=== PATIENT | female | born 1970 | race Caucasian/White ===

== ENCOUNTER 2024-04-16 13:07 | Emergency (ER) | payer OTHER, SELFPAY ==
[2024-04-16 13:11] VITALS: BP 138/75
--- NOTE | 2024-04-16 13:35 | ED.GENMED ---
History of Present Illness
General
Chief Complaint: Musculo-Skeletal Complaint
Source: patient
Exam Limitations: none
Time Seen by Provider: 04/16/24 13:34
Nursing documentation reviewed up to this point in time: agreed with
Travel History
Have you had any contact with someone who has COVID-19?: No
Do you have any symptoms of coronavirus? Fever > 100 degrees, chills, cough, shortness of breath, sore throat, loss of taste or smell, muscle aches, or headache?: No
History of Present Illness
History of Present Illness:
Patient is a 53-year-old female with history asthma, GERD presenting for evaluation of left lower chest discomfort. Patient reports symptoms have been ongoing over the course of the past 3 weeks. Symptoms are exacerbated greatly with coughing and
movement, specifically twisting motion. Patient does not endorse some worsening with deep inspiration. Patient denies any pain at rest or when lying down. Patient denies any associated fever, or shortness of breath. Patient denies any recent
dizziness, lightheadedness, or fainting.
Of note�patient says she was recently sick with what she believes to be a viral URI about a month ago. This was associated with significant coughing. Patient denies any sputum production line with cough. She does have a chronic cough at
baseline.
Patient denies any recent travel or recent surgeries. No history of blood clots or clotting disorders. Patient is a current smoker.
Past History
Past History
ED Past Medical History: Asthma and GERD
ED Past Surgical History: Appendectomy
Social History
Tobacco: Smoker
Review of Systems
Review of Systems
Allergies reviewed?: Yes
All Other Systems: ROS reviewed and negative except as documented in HPI and ROS
Phy Exam
Physical Exam
Physical Exam:
Vitals: Patient's vital signs are stable. Afebrile
General: Patient is well appearing, no acute distress. Nontoxic-appearing
Skin: Warm and dry, no rashes or lesions. No bruising
Head: Normocephalic, atraumatic
Eyes: Sclera nonicteric. EOMs intact. No nystagmus.
Throat: Protecting airway
Neck: Normal ROM, no cervical spine tenderness, no meningismus. Trachea midline
Cardiac: Regular rate and rhythm, no murmurs. Point tenderness noted to left lower lateral rib cage without any crepitus or obvious bony deformity.
Pulm: Lungs clear bilaterally. Normal respiratory effort, no wheezes, rales, rhonchi heard on exam. No evidence of respiratory distress. No accessory muscle use.
Abdomen: No abdominal tenderness.
Extremities: No evidence of cyanosis or edema. Good distal pulses.
Neuro: AAOx3. CN II-XII intact. No focal neurologic deficits.
Psychiatric: Normal affect.
Course
Orders/Labs/Results
Orders:
Orders
04/16/24 13:28
CR Ribs-left 2 Vw No Pa Chest Urgent
Reason For Exam: pain
CXR2 [CR Chest - 2 Views ] Urgent
Comment:
Reason For Exam: pain
04/16/24 14:01
Ketorolac [Toradol] 15 mg IM NOW STA
04/16/24 14:53
D-Dimer Urgent
04/16/24 16:05
Electrocardiogram (*1) Urgent
Reason for Study: Chest Pain
EKG- Treatment ONCE
Vital Signs
Initial and Last Documented VS:
Initial Vital Signs
Temp Pulse Resp BP Pulse Ox
98.1 F 67 18 138/75 97
04/16/24 13:11 04/16/24 13:11 04/16/24 13:11 04/16/24 13:11 04/16/24 13:11
Last Documented Vital Signs
Temp Pulse Resp BP Pulse Ox
98.1 F 64 18 142/73 98
04/16/24 13:11 04/16/24 16:26 04/16/24 16:26 04/16/24 16:26 04/16/24 16:26
MDM/Problems Addressed
Differential Diagnosis Includes:
Not limited to: Rib contusion, rib fracture, costochondritis, muscular strain, doubt pneumonia or pneumothorax or PE
MDM/Problems Addressed:
53-year-old female presenting for evaluation of left lower chest discomfort exacerbated with coughing and movement. Symptoms been ongoing for the past 3 weeks since recent URI. Patient denies any fever, chills, shortness of breath, or productive
cough at this time. No recent trauma. Vital signs are stable, patient afebrile. Exam as above. Patient is well-appearing, in no apparent respiratory distress. She does have point tenderness along the left lower lateral ribs. No overlying
bruising or rash. Lungs clear bilaterally. Heart regular rate and rhythm. No clinical evidence of DVT on exam. Symptoms and history most consistent with likely costochondritis/muscle strain. Both rib series and chest x-ray obtained in triage
show no acute abnormalities or displaced rib fractures. No evidence of pneumonia. Given somewhat pleuritic nature and patient's history of smoking�will check D-dimer and EKG. Anticipate discharge. Toradol for pain
Fortunately�D-dimer is negative. EKG shows normal sinus rhythm without any acute ischemic changes. Patient is feeling significant improvement following Toradol. Suspect likely costochondritis/muscular strain. Patient stable for discharge with
return precautions, NSAIDs, primary care follow-up. Patient comfortable with plan. All questions answered. Case discussed with attending physician.
Chronic conditions affecting care:
N/A
Acute Exacerbation and/or Progression of Chronic Illness:
N/A
*Radiology
Radiology exam reviewed: preliminary read by ED provider and radiology read reviewed
*Pulse Oximetry
Patient hypoxic: no
*EKG
Interpreted by ED Provider?: Yes
EKG Intrepretation Date: 04/16/24
Interpretation: normal
Comparison EKG: no comparison EKG present
Heart Rate: 59
Rate: bradycardiac
Rhythm: sinus
Ischemia: no ischemia
*Packaging Specialist Interpretation
Rate: Packaging Specialist- N/A
*Critical Care Note
Total Time (30-74mins, 75-104mins- exclusive of procedures): Not Applicable
ED Attending Note
-
Portions of this chart may have been created with voice recognition software.� Occasional wrong word or��sound alike� substitutions may have occurred due to the inherent limitations of voice recognition software.
Discharge Plan
Departure
Patient Disposition: Home (Routine Discharge)
Date of Disposition: 04/16/24
Time of Disposition: 16:12
Patient with high blood pressure during this ER visit?: Yes
Condition: Good
Covid-19: Not Applicable
Discharge Problem:
Acute costochondritis
Instructions: Costochondritis, Muscle Strain (DC)
Prescriptions:
No Action
albuterol sulfate 1 PUFF HFA aerosol inhaler
2 puff inhalation R Q6HPRN PRN (Reason: sob)
acetaminophen [Tylenol Extra Strength] 500 MG tablet
1,000 mg PO Q6HPRN PRN (Reason: mild pain) Qty: 1 0RF
ibuprofen 200 MG tablet
400 - 600 mg PO Q6HPRN PRN (Reason: moderate pain) Qty: 1 0RF
Referrals:
Angie Pendleton CRNP [Family Provider] - Follow up in 5-7 days
Activity Restrictions/Additional Instructions:
RETURN TO THE EMERGENCY DEPARTMENT WITH ANY FEVERS, CHILLS, CHEST PAIN, SHORTNESS OF BREATH, INTRACTABLE PAIN, WORSENING IN CURRENT SYMPTOMS, OR ANY OTHER CONCERNS
-Should continue to take Motrin/Tylenol as needed for discomfort. Apply ice/heat for comfort.
-Follow-up with your primary care provider in the next week to ensure symptoms are improving/ for further evaluation
Interventions
Interventions:
*Risk Screen - Suicide Last Done: 04/16/24 13:11
*General Assessment Last Done: 04/16/24 14:32
*Neglect/Abuse Screening Last Done: 04/16/24 13:11
ED- Fall Risk Assessment Last Done: 04/16/24 16:26
*ED COVID-19 Vaccine History Last Done: 04/16/24 13:11
*Nursing Disposition Last Done: 04/16/24 16:26
ED-Musculoskeletal Assessment Last Done: 04/16/24 13:57
Discharge Date and Time
Discharge Date/Time: 04/16/24 16:27
Print Language: ICELANDIC
[2024-04-16] MEDS: TORADOL 15 MG IM (14:06)
[2024-04-16 15:30] LABS: D-Dimer < 0.27 ug/mlFEU (0.00-0.50)
[2024-04-16 16:26] VITALS: BP 142/73
== END 2024-04-16 16:27 | disposition home or self-care (01) ==
LOC: EMR 13:07
PROVIDERS: Physician Assistant; EMERGENCY PHYSICIAN Emergency Medicine; FAMILY PHYSICIAN Nurse Practitioner Family
DX: M94.0 Chondrocostal junction syndrome [Tietze] (principal); R03.0 Elevated blood-pressure reading, without diagnosis of hypertension; J45.909 Unspecified asthma, uncomplicated; K21.9 Gastro-esophageal reflux disease without esophagitis; R05.3 Chronic cough; F17.210 Nicotine dependence, cigarettes, uncomplicated; Z88.8 Allergy status to other drugs, medicaments and biological substances
CPT/HCPCS: 99284; 96372; 71046; 71100; 85379; 93005